=== PATIENT | female | born 2000 | race American Indian/Alaskan Native ===

== ENCOUNTER 2019-08-26 17:12 | Emergency (ER) | payer MEDICAID ==
--- NOTE | 2019-08-26 18:15 | Emergency Department Report ---
Blank Doc - Documentation Documentation: 19-year-old female that presents with pelvic pain and vaginal bleeding. Stated is 6 weeks . This initial assessment/diagnostic orders/clinical plan/treatment(s) is/are subject to change based on patient's health status, clinical progression and re- assessment by fellow clinical providers in the ED. Further treatment and workup at subsequent clinical providers discretion. Patient/guardians urged not to elope from the ED as their condition may be serious if not clinically assessed and managed. Initial orders include: 1- Patient sent to [facility] for further evaluation and treatment 2- UA 3- labs 4- US OB
[2019-08-26 18:16] VITALS: BP 111/52
[2019-08-26 19:10] LABS: Hematocrit 33.9 % (30.3-42.9); Hemoglobin 11.5 gm/dl (10.1-14.3); Mean Corpuscular HGB Conc 34 % (30-34); Mean Corpuscular Volume 86 fl (79-97); Platelet Count 258 K/mm3 (140-440); Red Blood Count 3.94 M/mm3 (3.65-5.03)
[2019-08-26 19:55] LABS: Alanine Aminotransferase 9 units/L (7-56); Albumin 4.7 g/dL (3.9-5); BUN/Creatinine Ratio 12; Blood Urea Nitrogen 6 mg/dL (7-17); Calcium 9.6 mg/dL (8.4-10.2); Hemolysis Index 3
--- NOTE | 2019-08-26 20:05 | Emergency Department Report ---
ED Female HPI - General Chief complaint: Vaginal Bleeding Stated complaint: 6 WKS /SPOTTING Time Seen by Provider: 08/26/19 18:14 Source: patient Mode of arrival: Ambulatory Limitations: No Limitations - History of Present Illness Initial comments: Patient is a A0 19-year-old -[place] female who is approximately 6 weeks gestation and who presents to the ED with complaint of acute onset persistent intermittent vaginal bleeding which initially started as vaginal spotting, and now has gotten worse in the last 24 hours. Patient also complains of pelvic pain which she describes as cramps and which are intermittent and worse with bleeding. Patient denies dysuria, urinary frequency and urgency, dizziness, syncope, chest pain, shortness of breath, fever, chills, change in vision, diarrhea or headache MD Complaint: vaginal bleeding, pelvic pain -: Sudden, hour(s) (24) Location: suprapubic, other (vaginal) Radiation: non-radiating Severity: moderate Severity scale (0 -10): 4 Quality: cramping, aching Consistency: intermittent Improves with: none Worsens with: none Are you Now?: Yes (6 weeks gestation) Associated Symptoms: denies other symptoms, vaginal bleeding, abdominal pain (suprapubic). denies: vaginal discharge, nausea/vomiting, fever/chills, headaches, loss of appetite, dysuria, hematuria, rash, seizure, shortness of breath, syncope, weakness, other - Related Data Sexually active: Yes : 2 Para: 1 A: 0 Previous Rx's Medication Instructions Recorded Last Taken Type Acetaminophen [Acetaminophen TAB] 500 mg PO Q6HR PRN #30 tablet 08/26/19 Unknown Rx Allergies Allergy/AdvReac Type Severity Reaction Status Date / Time No Known Allergies Allergy Unverified 08/26/19 17:30 ED Review of Systems ROS: Stated complaint: 6 WKS /SPOTTING Other details as noted in HPI Constitutional: denies: chills, fever Eyes: denies: eye pain, eye discharge, vision change ENT: denies: ear pain, throat pain Respiratory: denies: cough, shortness of breath, wheezing Cardiovascular: denies: chest pain, palpitations Endocrine: no symptoms reported Gastrointestinal: abdominal pain (suprapubic). denies: nausea, vomiting, diarrhea, hematemesis, hematochezia Genitourinary: abnormal menses (vaginal bleeding). denies: urgency, dysuria, frequency, discharge Musculoskeletal: denies: back pain, joint swelling, arthralgia Skin: denies: rash, lesions Neurological: denies: headache, weakness, paresthesias Psychiatric: denies: anxiety, depression Hematological/Lymphatic: denies: easy bleeding, easy bruising ED Past Medical Hx - Past Medical History Previous Medical History?: No - Surgical History Past Surgical History?: No - Social History Smoking Status: Never Smoker Substance Use Type: Marijuana - Medications Home Medications: Home Medications Medication Instructions Recorded Confirmed Last Taken Type Acetaminophen [Acetaminophen TAB] 500 mg PO Q6HR PRN #30 tablet 08/26/19 Unknown Rx ED Physical Exam - General Limitations: No Limitations General appearance: alert, in no apparent distress - Head Head exam: Present: atraumatic, normocephalic, normal inspection - Eye Eye exam: Present: normal appearance, PERRL, EOMI Pupils: Present: normal accommodation - ENT ENT exam: Present: normal exam, normal orophraynx, mucous membranes moist, TM's normal bilaterally, normal external ear exam - Neck Neck exam: Present: normal inspection, full ROM - Respiratory Respiratory exam: Present: normal lung sounds bilaterally. Absent: respiratory distress, wheezes, chest wall tenderness - Cardiovascular Cardiovascular Exam: Present: regular rate, normal rhythm, normal heart sounds. Absent: systolic murmur, diastolic murmur, rubs, gallop - GI/Abdominal GI/Abdominal exam: Present: soft, tenderness (palpable mild suprapubic tenderness), normal bowel sounds. Absent: guarding, rebound, hyperactive bowel sounds, hypoactive bowel sounds - Bi-manual exam: Present: other (Pelvic exam deferred, patient declined) - Extremities Exam Extremities exam: Present: normal inspection, full ROM, normal capillary refill - Back Exam Back exam: Present: normal inspection, full ROM. Absent: tenderness, CVA tenderness (R), CVA tenderness (L), muscle spasm, paraspinal tenderness - Neurological Exam Neurological exam: Present: alert, oriented X3, CN II-XII intact, normal gait, reflexes normal - Psychiatric Psychiatric exam: Present: normal affect, normal mood - Skin Skin exam: Present: warm, dry, intact, normal color. Absent: rash ED Course Vital Signs 02/13/20 02/13/20 18:15 22:14 Temperature 98.9 F Pulse Rate 67 65 Respiratory 18 17 Rate Blood Pressure 111/52 O2 Sat by Pulse 100 100 Oximetry ED Medical Decision Making - Lab Data Result diagrams: 08/26/19 18:30 08/26/19 18:30 - Radiology Data Radiology results: report reviewed, image reviewed Findings [facility] [address] [place] [address] Ultrasound Report Signed Patient: JEROMY RICO MR#: [id number] : 2000 Acct:[id number] Age/Sex: 19 / F ADM Date: 08/26/19 Loc: ED Attending Dr: Ordering Physician: MARIA L LUONG NP Date of Service: 08/26/19 Procedure(s): US OB <= 14 weeks fetus Accession Number(s): [id number] cc: MARIA L LUONG NP Early obstetrical ultrasound INDICATION: , pelvic pain, vaginal bleeding TECHNIQUE: Transabdominal FINDINGS: Prominently anteflexed uterus is noted measuring 8.8 cm in length. An early intrauterine is noted with pole and yolk sac seen. Cardiac activity is documented with heart rate measured varying from 81 to 106 bpm. By crown-rump length estimated gestational age is 6 weeks 2 days. No focal abnormality is seen. Right ovary measures 1.8 cm in length and shows no abnormalities. Left ovary m easures 4.4 cm in length and shows small follicular-type cysts. No free fluid is seen. IMPRESSION: Early intrauterine is confirmed. cardiac activity is noted though right is rather low. Close follow-up is suggested. Signer Name: Praful Tovar MD Signed: 08/26/2019 8:06 PM Workstation Name: [id number] Transcribed By: CRISTIAN Dictated By: Praful Tovar MD Electronically Authenticated By: Praful Tovar MD Signed Date/Time: 08/26/192005 DD/ 00 TD/TT: - Medical Decision Making This is a G2, 19-year-old female who is approximately 6 weeks gestation and who presented to the ED with acute onset persistent pelvic pain with vaginal bleeding for 24 hours. In the ED, patient is alert and oriented x3 and is not in distress. Lab test results were reviewed and are all nonactionable with hCG quant of 7229. Urinalysis shows large amount of blood. Transvaginal ultrasound shows a prominently anteflexed uterus is noted measuring 8.8 cm in length. An early intrauterine is noted with pole and yolk sac seen. Cardiac activity is documented with heart rate measured varying from 81 to 106 bpm. By crown-rump length estimated gestational age is 6 weeks 2 days. No focal abnormality is seen. On reevaluation, patient's pain as stated by her was mild and she declined any pain medication in the ED. Patient was however discharged home and advised to maintain a complete pelvic rest and to avoid heavy lifting or strenuous physical activity, and to follow-up with her [employer]PERVISOR physician in 3 to 5 days for reevaluation. Patient was was advised to return to the ED immediately if symptoms get worse. - Differential Diagnosis Threatened miscarriage; Subchorionic bleed; Ectopic ; UTI; Ovarian Critical care attestation.: If time is entered above; I have spent that time in minutes in the direct care of this critically ill patient, excluding procedure time. ED Disposition Clinical Impression: Threatened miscarriage in early Abdominal pain in Qualifiers: Trimester: first trimester Qualified Code(s): O26.891 - Other specified related conditions, first trimester Disposition: DC-01 TO HOME OR SELFCARE Is pt being admited?: No Does the pt Need Aspirin: No Condition: Stable Instructions: Threatened Miscarriage (ED), Abdominal Pain in (ED) Additional Instructions: Maintain a complete pelvic rest with no heavy lifting or strenuous physical activity, sexual activity and take Tylenol as needed for pain. Follow-up with your [employer] physician Dr. Segura in 3 to 5 days for reevaluation. Return to the ED immediately if symptoms get worse. Prescriptions: Acetaminophen [Acetaminophen TAB] 500 mg PO Q6HR PRN #30 tablet PRN Reason: Pain , Severe (7-10) Referrals: PRIMARY CAREMD [Primary Care Provider] - 3-5 Days JESSICA SEGURA MD [Staff Physician] - 3-5 Days Forms: Work/School Release Form(ED) Time of Disposition: 22:06 Print Language: EQUATORIAL GUINEAN
--- NOTE | 2019-08-26 20:10 | Ultrasound Report ---
Early obstetrical ultrasound INDICATION: , pelvic pain, vaginal bleeding TECHNIQUE: Transabdominal FINDINGS: Prominently anteflexed uterus is noted measuring 8.8 cm in length. An early intrauterine pr egnancy is noted with pole and yolk sac seen. Cardiac activity is documented with heart r ate measured varying from 81 to 106 bpm. By crown-rump length estimated gestational age is 6 weeks 2 days. No focal abnormality is seen. Right ovary measures 1.8 cm in length and shows no abnormalities. Left ovary measures 4.4 cm in lengt h and shows small follicular-type cysts. No free fluid is seen. IMPRESSION: Early intrauterine is confirmed. cardiac activity is noted though right i s rather low. Close follow-up is suggested. Signer Name: Praful Tovar MD Signed: 08/26/2019 8:06 PM Workstation Name: [id number]
[2019-08-26 21:18] LABS: Bacteria,Urine 1+ /HPF (Negative); Bilirubin,Urine NEG (Negative); Blood,Urine LG (Negative); Color,Urine Yellow (Yellow); Mucus,Urine FEW /HPF; Protein,Urine <15 mg/dL mg/dL (Negative); Urobilinogen,Urine < 2.0 mg/dL (<2.0)
== END 2019-08-26 22:14 | disposition home or self-care (01) ==
LOC: ED 17:12
DX: O20.0 Threatened abortion (principal); F12.10 Cannabis abuse, uncomplicated; Z3A.01 Less than 8 weeks gestation of pregnancy
CPT/HCPCS: 36415; 76801; 80053; 81001; 84702; 85025; 86900; 86901; 99284

== ENCOUNTER 2019-08-28 02:28 | Emergency (ER) | payer MEDICAID ==
[2019-08-28 02:53] VITALS: BP 117/76
[2019-08-28 04:24] LABS: Hematocrit 39.2 % (30.3-42.9); Hemoglobin 12.8 gm/dl (10.1-14.3); Mean Corpuscular Volume 86 fl (79-97); Red Blood Count 4.57 M/mm3 (3.65-5.03)
[2019-08-28 04:25] LABS: Basophils % (Auto) 0.3 % (0.0-1.8); Eosinophils # (Auto) 0.1 K/mm3 (0.0-0.4); Eosinophils % (Auto) 1.7 % (0.0-4.3); Lymphocytes % (Auto) 23.8 % (13.4-35.0); Mean Corpuscular HGB Conc 33 % (30-34); Monocytes # (Auto) 0.4 K/mm3 (0.0-0.8); Platelet Count 333 K/mm3 (140-440); Red Cell Distribution Width 13.9 % (13.2-15.2)
--- NOTE | 2019-08-28 04:32 | Ultrasound Report ---
OB ultrasound first trimester INDICATION: Passing clots COMPARISON: 08/26/2019 FINDINGS: Uterus measures 9.3 cm in length. The ovaries are unremarkable. There is a gestational sac which measures 11.9 mm correlating to a 6 week 0 day gestation. Irregular gestational sac is seen in the uterus. No pole is seen. No heart tones are identified at this time. IMPRESSION: No pole and no heart tones are identified at this time. Signer Name: Dashawn Williamson MD Signed: 08/28/2019 4:28 AM Workstation Name: [id number]
[2019-08-28] MEDS ORDERED: ONDANSETRON 4 MG ODT TAB PO ONE (04:38)
[2019-08-28] MEDS ORDERED: ACETAMINOPHEN 500 MG TAB PO ONE (04:38)
[2019-08-28 05:38] LABS: Alanine Aminotransferase 9 units/L (7-56); Albumin 4.7 g/dL (3.9-5); BUN/Creatinine Ratio 20; Blood Urea Nitrogen 12 mg/dL (7-17); Calcium 10.1 mg/dL (8.4-10.2); Hemolysis Index 1
--- NOTE | 2019-08-28 06:15 | Emergency Department Report ---
ED Female HPI - General Chief complaint: Vaginal Bleeding Stated complaint: MISCARRIAGE Source: patient Mode of arrival: Ambulatory Limitations: No Limitations - History of Present Illness Initial comments: Patient is a A0 19-year-old -[place] female who is approximately 6 weeks gestation and who presented to the ED with complaint of acute onset persistent heavy vaginal bleeding for the last 3 days at which got worse in the last 8 hours. Patient states that 2 hours prior to arrival in the ED she voided large blood clots with urine and that her pain has worsened. Patient denies dysuria, urinary frequency and urgency, dizziness, syncope, chest pain, shortne ss of breath, fever, chills, change in vision, diarrhea or headache. MD Complaint: vaginal bleeding, pelvic pain -: Sudden, days(s) (3) Location: suprapubic, other (vaginal) Severity: severe Severity scale (0 -10): 8 Quality: cramping, sharp Consistency: constant Improves with: none Worsens with: movement Are you Now?: Yes (6 weeks gestation) Associated Symptoms: denies other symptoms, vaginal bleeding, abdominal pain (suprpaubic). denies: vaginal discharge, nausea/vomiting, fever/chills, headaches, loss of appetite, dysuria, hematuria, seizure, shortness of breath, syncope, weakness - Related Data Sexually active: Yes : 2 Para: 1 A: 0 Previous Rx's Medication Instructions Recorded Last Taken Type Acetaminophen [Acetaminophen TAB] 500 mg PO Q6HR PRN #30 tablet 08/26/19 Unknown Rx Allergies Allergy/AdvReac Type Severity Reaction Status Date / Time No Known Allergies Allergy Unverified 08/26/19 17:30 ED Review of Systems ROS: Stated complaint: MISCARRIAGE Other details as noted in HPI Constitutional: denies: chills, fever Eyes: denies: eye pain, eye discharge, vision change ENT: denies: ear pain, throat pain Respiratory: denies: cough, shortness of breath, wheezing Cardiovascular: denies: chest pain, palpitations Endocrine: no symptoms reported Gastrointestinal: abdominal pain (Suprapubic pain). denies: nausea, diarrhea Genitourinary: abnormal menses (Heavy vaginal bleeding). denies: urgency, dysuria, discharge Musculoskeletal: denies: back pain, joint swelling, arthralgia Skin: denies: rash, lesions Neurological: denies: headache, weakness, paresthesias Psychiatric: denies: anxiety, depression Hematological/Lymphatic: denies: easy bleeding, easy bruising ED Past Medical Hx - Past Medical History Previous Medical History?: No - Surgical History Past Surgical History?: No - Social History Smoking Status: Never Smoker Substance Use Type: Marijuana - Medications Home Medications: Home Medications Medication Instructions Recorded Confirmed Last Taken Type Acetaminophen [Acetaminophen TAB] 500 mg PO Q6HR PRN #30 tablet 08/26/19 Unknown Rx ED Physical Exam - General Limitations: No Limitations General appearance: alert, in no apparent distress - Head Head exam: Present: atraumatic, normocephalic, normal inspection - Eye Eye exam: Present: normal appearance, PERRL, EOMI Pupils: Present: normal accommodation - ENT ENT exam: Present: normal exam, normal orophraynx, mucous membranes moist, TM's normal bilaterally, normal external ear exam - Neck Neck exam: Present: normal inspection, full ROM - Respiratory Respiratory exam: Present: normal lung sounds bilaterally. Absent: respiratory distress, wheezes, rales, chest wall tenderness, decreased breath sounds - Cardiovascular Cardiovascular Exam: Present: regular rate, normal rhythm, normal heart sounds. Absent: systolic murmur, diastolic murmur, rubs, gallop - GI/Abdominal GI/Abdominal exam: Present: soft, tenderness (Palpable suprapubic tenderness), normal bowel sounds. Absent: hyperactive bowel sounds - Bi-manual exam: Present: other (Pelvic exam deferred, patient declined exam) - Extremities Exam Extremities exam: Present: normal inspection, full ROM, normal capillary refill - Back Exam Back exam: Present: normal inspection, full ROM. Absent: tenderness, CVA tenderness (R), CVA tenderness (L), muscle spasm, paraspinal tenderness - Neurological Exam Neurological exam: Present: alert, oriented X3, CN II-XII intact, normal gait, reflexes normal - Psychiatric Psychiatric exam: Present: normal affect, normal mood - Skin Skin exam: Present: warm, dry, intact, normal color. Absent: rash ED Course Vital Signs 08/28/19 08/28/19 02:47 05:12 Temperature 98.5 F Pulse Rate 83 Respiratory 18 18 Rate Blood Pressure 117/76 O2 Sat by Pulse 100 Oximetry ED Medical Decision Making - Lab Data Result diagrams: 08/28/19 03:12 08/28/19 04:37 - Radiology Data Radiology results: report reviewed, image reviewed Findings [facility] [address] [place] [address] Ultrasound Report Signed Patient: JEROMY RICO MR#: [id number] : 2000 Acct:[id number] Age/Sex: 19 / F ADM Date: 08/28/19 Loc: ED Attending Dr: Ordering Physician: PERRI BETHEA MD Date of Service: 08/28/19 Procedure(s): US OB <= 14 weeks fetus Accession Number(s): [id number] cc: PERRI BETHEA MD OB ultrasound first trimester INDICATION: Passing clots COMPARISON: 08/26/2019 FINDINGS: Uterus measures 9.3 cm in length. The ovaries are unremarkable. There is a gestational sac which measures 11.9 mm correlating to a 6 week 0 day gestation. Irregular gestational sac is seen in the uterus. No pole is seen. No heart tones are identified at this time. IMPRESSION: No pole and no heart tones are identified at this time. Signer Name: Dashawn Williamson MD Signed: 08/28/2019 4:28 AM Workstation Name: [id number] Transcribed By: SS Dictated By: Dashawn Williamson MD Electronically Authenticated By: Dashawn Williamson MD Signed Date/Time: 08/28/19427 DD/ 4 TD/TT: - Medical Decision Making This is a A0 19-year-old female who is approximately 6 weeks gestation and who presented to the ED with complaint of acute onset persistent pelvic pain with vaginal bleeding for 3 days. Patient had previously been evaluated for the same 2 days ago and at that time the patient had a single IUP with cardiac activity on ultrasound. In the ED today, patient is alert and oriented x3 and is not in distress but appears to be in significant pain. Patient was treated for pain in the ED and lab test results were reviewed and are all nonactionable except for hCG quant which has reduced to 4871. When compared to the most recent hCG quant of 48 hours ago, this was 7229 at that time, showing a si gnificant decrease in hCG quant. Transvaginal ultrasound showed a gestational sac corresponding to 6 weeks and 0 days but there was no pole or heart rate identified at this time. When compared to the most recent transvaginal ultrasound performed 2 days ago, the transvaginal ultrasound report at that time showed gestational sac measuring 6 weeks and 2 days with heart rate in the range of 81 to 106 bpm. On reevaluation, patient's pain is significantly improved and almost resolved. Patient was discharged home and advised to maintain a complete pelvic rest and take Tylenol as needed for pain. Patient was advised that she is likely having a miscarriage based on the hCG quant results and the transvaginal ultrasound reports. Patient was however advised to return to the ED or to her FINANCIAL SERVICES AUDITOR physician in 48 hours for serial repeat hCG quant to ascertain the viability of the . Patient was otherwise advised return to the ED immediately if symptoms get worse. - Differential Diagnosis Threatened miscarriage; Subchorionic bleed; Ovarian cyst; UTI; Fibroids Critical care attestation.: If time is entered above; I have spent that time in minutes in the direct care of this critically ill patient, excluding procedure time. ED Disposition Clinical Impression: Threatened miscarriage in early Abdominal pain in Qualifiers: Trimester: first trimester Qualified Code(s): O26.891 - Other specified related conditions, first trimester Disposition: DC-01 TO HOME OR SELFCARE Is pt being admited?: No Does the pt Need Aspirin: No Condition: Stable Instructions: Threatened Miscarriage (ED), Abdominal Pain in (ED) Additional Instructions: Your lab test results are unremarkable except for a decreased hCG quant studies of 4871 compared to 2 days ago when it was 7229. This therefore means that you may be having miscarriage. Transvaginal ultrasound showed a gestational sac corresponding to 6 weeks and 0 days but there was no pole or heart rate identified at this time. When compared to the most recent transvaginal ultrasound performed 2 days ago, the transvaginal ultrasound report at that time showed gestational sac measuring 6 weeks and 2 days with heart rate in the range of 81 to 106 bpm. Therefore maintain a complete pelvic rest, take Tylenol as needed for pain and return to the ED or follow-up with your FINANCIAL SERVICES AUDITOR physician in 48 hours for repeat hCG quant studies. Return to the ED immediately if symptoms get worse. Referrals: MAYURI LANDON MD [Staff Physician] - 2-3 Days Forms: Work/School Release Form(ED) Time of Disposition: 06:17 Print Language: GERMAN
== END 2019-08-28 06:25 | disposition home or self-care (01) ==
LOC: ED 02:28
DX: O20.0 Threatened abortion (principal); F12.10 Cannabis abuse, uncomplicated; Z3A.01 Less than 8 weeks gestation of pregnancy; Z79.899 Other long term (current) drug therapy
CPT/HCPCS: 36415; 76801; 80053; 84702; 85025; 86900; 86901; Q0162

== ENCOUNTER 2019-08-30 05:48 | Emergency (ER) | payer MEDICAID ==
[2019-08-30 05:51] VITALS: BP 114/61
--- NOTE | 2019-08-30 08:12 | Emergency Department Report ---
ED HPI - General Chief complaint: Vaginal Bleeding Stated complaint: RECHECK Time Seen by Provider: 08/30/19 08:04 Source: patient Mode of arrival: Ambulatory Limitations: No Limitations - History of Present Illness Initial comments: Patient is a 19-year-old female presents emergency room with a repeat repeat of her hCG quant. She states that she has had vaginal bleeding for 5 days. She states that it was heavier yesterday but has decreased significantly today. She states that she is only had to wear 1 pad today. She denies any abdominal pain, nausea, vomiting, diarrhea, fever, lightheadedness, dizziness. She has not seen an [employer] [facility] [employer]. Her last menstrual cycle was July 11. Her initial quant was 7229 and then decreased to 4871. She returns again for repeat of her quant. She denies any past medical history. She denies any allergies to medications. /P: 1/A: 0 - Related Data Previous Rx's Medication Instructions Recorded Last Taken Type Acetaminophen [Acetaminophen TAB] 500 mg PO Q6HR PRN #30 tablet 08/26/19 Unknown Rx Allergies Allergy/AdvReac Type Severity Reaction Status Date / Time No Known Allergies Allergy Verified 08/30/19 05:50 ED Review of Systems ROS: Stated complaint: RECHECK Other details as noted in HPI Comment: All other systems reviewed and negative ED Past Medical Hx - Past Medical History Previous Medical History?: No - Surgical History Past Surgical History?: No - Social History Smoking Status: Never Smoker Substance Use Type: Marijuana - Medications Home Medications: Home Medications Medication Instructions Recorded Confirmed Last Taken Type Acetaminophen [Acetaminophen TAB] 500 mg PO Q6HR PRN #30 tablet 08/26/19 Unknown Rx ED Physical Exam - General Limitations: No Limitations General appearance: alert, in no apparent distress - Head Head exam: Present: atraumatic, normocephalic - Eye Eye exam: Present: normal appearance - ENT ENT exam: Present: mucous membranes moist - Respiratory Respiratory exam: Present: normal lung sounds bilaterally. Absent: respiratory distress, wheezes, rales, rhonchi, stridor, chest wall tenderness, accessory muscle use, decreased breath sounds, prolonged expiratory - Cardiovascular Cardiovascular Exam: Present: regular rate, normal rhythm, normal heart sounds. Absent: systolic murmur, diastolic murmur, rubs, gallop - GI/Abdominal GI/Abdominal exam: Present: soft, normal bowel sounds. Absent: distended, tenderness, guarding, rebound, rigid - Neurological Exam Neurological exam: Present: alert, oriented X3 - Psychiatric Psychiatric exam: Present: normal affect, normal mood - Skin Skin exam: Present: warm, dry, intact ED Course Vital Signs 08/30/19 05:50 Temperature 97.8 F Pulse Rate 80 Respiratory 18 Rate Blood Pressure 114/61 O2 Sat by Pulse 100 Oximetry ED Medical Decision Making - Medical Decision Making Patient is a 19-year-old female presents emergency room with a repeat repeat of her hCG quant. She states that she has had vaginal bleeding for 5 days. She states that it was heavier yesterday but has decreased significantly today. She states that she is only had to wear 1 pad today. She denies any abdominal pain, nausea, vomiting, diarrhea, fever, lightheadedness, dizziness. She has not seen an [employer]. Her last menstrual cycle was July 11. Her initial quant was 7229 and then decreased to 4871. She returns again for repeat of her quant. She denies any past medical history. She denies any allergies to medications. /P: 1/A: 0. vitals are normal. no abd ttp, no guarding, no rebound, no rigidity. hcg quant has decreased from 7229 --> 4871 --> 1263. it appears pt has had a spontaneous miscarriage. she is Rh positive. two days ago, she had an US in the ED which showed an interuterine gestation sac at 6 weeks but no pole and no heart activity. advised pt that she needed to follow up with an [employer] and continue to have her hcg monitored until it has gone to less than 2. advised pt please follow up with an [employer] in the next 2-3 days. will need to have repeat of your hcg quant to make sure this number continues to decrease. return to the emergency room for any new or worsening symptoms. - Differential Diagnosis IUP, ectopic, spontaneous misscarriage, subchorionic hemorrhage Critical care attestation.: If time is entered above; I have spent that time in minutes in the direct care of this critically ill patient, excluding procedure time. ED Disposition Clinical Impression: Miscarriage, Vaginal bleeding Disposition: TO HOME OR SELFCARE Is pt being admited?: No Does the pt Need Aspirin: No Condition: Stable Instructions: Spontaneous Miscarriage (ED) Additional Instructions: your hcg quant has decreased from 7229 --> 4871 --> 1263. please follow up with an [employer] in the next 2-3 days. will need to have repeat of your hcg quant to make sure this number continues to decrease. return to the emergency room for any new or worsening symptoms. Referrals: [facility] [Provider Group] - 2-3 Days [facility] [Provider Group] - 2-3 Days [facility] [Provider Group] - 2-3 Days [facility] [Outside] - 2-3 Days Forms: Work/School Release Form(ED) Time of Disposition: 08:14 Print Language: [id number]
== END 2019-08-30 08:24 | disposition home or self-care (01) ==
LOC: ED 05:48
DX: O03.9 Complete or unspecified spontaneous abortion without complication (principal); F12.10 Cannabis abuse, uncomplicated; Z3A.01 Less than 8 weeks gestation of pregnancy
CPT/HCPCS: 36415; 84702; 99283